=== PATIENT | female | born 1965 | race African-American/Black ===

== ENCOUNTER 2016-10-21 01:24 | Observation (INO) | payer OTHER ==
[~2016-10-21 01:24] MED LIST: IBUPROFEN600 MG PO; PERCOCET
[2016-10-21] MEDS ORDERED: TESSALON PERLE100 M1 PO (01:39)
[2016-10-21] MEDS ORDERED: INHALER (01:40)
[2016-10-21 02:25] LABS: BASO % 0.6 % (0-2); BASO ABSOLUTE COUNT 0.1 tho/cmm (0.0-0.2); EOS % 4.8 % (0-7); EOSINOPHIL ABSOLUTE COUNT 0.4 tho/cmm (0.0-0.7); HCT-HEMATOCRIT 42.4 % (34.0-49.0); HGB-HEMOGLOBIN 14.7 gm/dl (12.0-15.5); IMMATURE GRANULOCYTES ABSOLUTE 0.01 tho/cmm (0-0.03); IMMATURE GRANULOCYTES PERCENT 0.1 % (0-0.3); LYMPH % 41.4 % (20-45); LYMPH ABSOLUTE COUNT 3.4 tho/cmm (0.8-4.5); MCH (MEAN CORPUSCULAR HGB) 29.5 pg (28.0-32.0); MCHC MEAN CORPUSCULAR HGB CONC 34.7 % (32.0-36.0); MCV (MEAN CELL VOLUME) 85.1 fl (82.0-96.0); MEAN PLATELET VOLUME 9.6 cmc (9.4-12.4); MONO % 6.5 % (0-12); MONOCYTE ABSOLUTE COUNT 0.5 tho/cmm (0.0-1.2); NEUTROPHIL ABSOLUTE COUNT 3.9 tho/cmm (1.6-8.0); NEUTROPHIL-AUTOMATED 3.9 tho/cmm (1.6-8.0); NEUTROPHILS % 46.6 % (40-80); PLATELET COUNT 360 tho/cmm (150-450); RED BLOOD COUNT 4.98 mil/cmm (4.00-5.20); RED CELL DISTRIBUTION WIDTH 11.9 % (12.4-16.4); WHITE BLOOD COUNT 8.3 tho/cmm (4.0-10.0)
[2016-10-21 02:35] LABS: ALB/GLOB RATIO 0.9 (0.8-2.0); ALBUMIN 4.1 g/dl (3.5-5.0); ALKALINE PHOSPHATASE 90 U/L (33-138); ALT/SGPT 18 U/L (12-78); ANION GAP 10 mmol/L (0-20); AST/SGOT 23 U/L (10-40); BILIRUBIN,TOTAL 0.3 mg/dl (0-1.5); BLOOD UREA NITROGEN 21 mg/dl (6-24); CALCIUM 9.5 mg/dl (8.5-10.5); CARBON DIOXIDE-VENOUS 25 mmol/L (22-32); CHLORIDE 107 mmol/l (96-110); CREATININE 0.82 mg/dl (0.50-1.10); GLUCOSE 95 mg/dL (70-110); SODIUM 138 mmol/L (135-145); eGFR VALUE FOR BLACK >90 mL/Min
== END 2016-10-21 10:35 | disposition left against medical advice (07) ==
LOC: EDMED 01:24 → EMR2 03:42 → CCU 04:48
PROVIDERS: Emergency Medicine; ADMIT Internal Medicine Cardiovascular Disease
DX: R06.00 Dyspnea, unspecified (principal); R07.9 Chest pain, unspecified; R94.31 Abnormal electrocardiogram [ECG] [EKG]; Z88.8 Allergy status to other drugs, medicaments and biological substances; Z87.01 Personal history of pneumonia (recurrent); Z90.710 Acquired absence of both cervix and uterus
CPT/HCPCS: G0378; J7030